=== PATIENT | male | born 1990 | race Caucasian/White ===

== ENCOUNTER 2016-12-16 08:32 | Emergency (ER) | payer BC ==
[~2016-12-16] VITALS: Ht 182.9 cm; Wt 70.3 kg
[2016-12-16 11:00] VITALS: BP 128/80
== END 2016-12-16 11:19 | disposition home or self-care (01) ==
LOC: EDUNIT# 08:32 → EDBD 08:32 → ER 08:34
DX: S46.912A Strain of unspecified muscle, fascia and tendon at shoulder and upper arm level, left arm, initial encounter (principal); R51 Headache; F12.10 Cannabis abuse, uncomplicated; F17.210 Nicotine dependence, cigarettes, uncomplicated; V43.52XA Car driver injured in collision with other type car in traffic accident, initial encounter; Y93.89 Activity, other specified; Y99.8 Other external cause status; Y92.89 Other specified places as the place of occurrence of the external cause
CPT/HCPCS: 70450; 73030; 73200